=== PATIENT | female | born 1945 | race Caucasian/White ===

== ENCOUNTER 2024-01-29 12:42 | Outpatient (CLI) | payer MEDICARE ==
[~2024-01-29] VITALS: Ht 170.2 cm; Wt 86.4 kg
[2024-01-29] MEDS ORDERED: CYMBALTA 60MG60 MG PO (12:57)
[2024-01-29] MEDS ORDERED: DIOVAN 80MG80 MG PO (12:58)
[2024-01-29] MEDS ORDERED: GLUCOPHAGE500 MG/TAB PO (12:58)
[2024-01-29] MEDS ORDERED: LYRICA 100MG C100 M1 PO (12:58)
[2024-01-29] MEDS ORDERED: PROTONIX 40MG T40 MG PO (12:59)
[2024-01-29] MEDS ORDERED: ZOCOR 20MG20 MG PO (13:00)
[2024-01-29 13:01] VITALS: BP 127/78; PULSE 85; TEMP 98
[2024-01-29] MEDS ORDERED: LANTUS100 U/ML SQ (13:01)
[2024-01-29] MEDS ORDERED: Iohexol 180 - 10 ML VIAL IV ONE (14:16)
[2024-01-29 14:20] VITALS: BP 141/70; PULSE 86
[2024-01-29 14:30] VITALS: BP 136/73; PULSE 84
[2024-01-29 14:45] VITALS: BP 134/70; PULSE 83
[2024-01-29 15:00] VITALS: BP 133/66; PULSE 86
[2024-01-29 15:15] VITALS: BP 117/72; PULSE 87
--- NOTE | 2024-01-29 15:30 | NUR ---
Discharge instructions given to pt>pt verbalizes understanding.Pt escorted out via wheelhair by this nurse.
== END 2024-01-29 17:33 ==
LOC: COL.RAD 12:42
DX: M47.26 Other spondylosis with radiculopathy, lumbar region (principal); S32.9XXA Fracture of unspecified parts of lumbosacral spine and pelvis, initial encounter for closed fracture; X58.XXXA Exposure to other specified factors, initial encounter
CPT/HCPCS: Q9965